=== PATIENT | male | born 1965 | race African-American/Black ===

== ENCOUNTER 2018-11-22 21:37 | Emergency (ER) | payer BC ==
[~2018-11-22] VITALS: Ht 182.9 cm; Wt 104.3 kg
[~2018-11-22 21:37] MED LIST: NAPROSYN500 M1 ORAL; NORCO 5-325 TA1 EACH ORAL
--- NOTE | 2018-11-22 21:37 | NUR ---
ED Nurse Note: Patient biba RA 28 from home c/o syncopal episode accompanied by general weakness, patient states that he just had recent Hemorrhoidectomy. reports of having dark red bleeding earlier today. Pt is AO x 4times, VSS, on room air no distress. ERMD seen Pt at bedside.
--- NOTE | 2018-11-22 21:45 | NUR ---
ED Nurse Note: Blood sample sent to lab.
--- NOTE | 2018-11-22 21:49 | Emergency Room Report ---
History of Present Illness General Chief Complaint: Syncope Source: Patient Present Illness HPI Patient presents with reports of a near syncope versus possible syncopal episode patient had Hemorrhoidectomy 8 days ago He has been having intermittent blood and rectal bleeding since then however 2 days ago he essentially stopped Today after using the restroom he noticed increased blood in the toilet after using the restroom another time Saw increased amount of blood At this point after returning to his room patient started feeling lightheaded And paramedics were summoned patient was found to be hypotensive at the scene Currently denies any chest pain or shortness of breath denies any abdominal pain reports feeling somewhat better Allergies: Uncoded Allergies: NUTS (Allergy, Unknown, 11/22/18) Patient History Past Medical History: see triage record Pertinent Family History: none Reviewed Nursing Documentation: PMH: Agreed; PSxH: Agreed Nursing Documentation-PMH Past Medical History: No History, Except For Review of Systems All Other Systems: negative except mentioned in HPI Physical Exam Vital Signs Date Time Temp Pulse Resp B/P (MAP) Pulse Ox O2 Delivery O2 Flow Rate FiO2 11/22/18 21:33 98.1 89 18 101/55 (70) 100 Room Air Sp02 EP Interpretation: reviewed, normal General Appearance: well appearing, no apparent distress Head: normocephalic, atraumatic Eyes: bilateral eye PERRL, bilateral eye EOMI ENT: hearing grossly normal, normal pharynx, TMs + canals normal, uvula midline Neck: full range of motion, supple, no meningismus, no bony tend Respiratory: lungs clear, normal breath sounds, no rhonchi, no respiratory distress, no retraction, no accessory muscle use Cardiovascular #1: normal peripheral pulses, regular rate, rhythm, no edema, no gallop, no JVD, no murmur Gastrointestinal: normal bowel sounds, non tender, soft, no mass, no organomegaly, non-distended, no guarding, no hernia, no pulsatile mass, no rebound, other - Approximately 7-10 o'clock region perirectal area there is some erosion and erythema Rectal: other - As above Genitourinary: no CVA tenderness Musculoskeletal: normal inspection Neurologic: oriented x3, responsive, ophthalmic medical assistant III-XII nml as tested, motor strength/ tone normal, sensory intact Psychiatric: mood/affect normal Skin: other - Mild pallor Lymphatic: normal inspection, no adenopathy Medical Decision Making Diagnostic Impression: Primary Impression: Syncope Additional Impression: GI bleed ER Course Patient is a fairly complex patient with multiple differential to consideration including but not limited to cardiac cardiopulmonary and vascular emergencies Given the patient's recent procedure and bleeding as well GI hemorrhage is considered patient's initial blood count shows hemoglobin 10.6 During this visit patient had a large amount of blood per rectum as well Repeat hemoglobin shows 10.4 findings patient however appears more pale and uncomfortable And emergency transfusion was performed At this time patient's blood pressure and heart rate remain appropriate and given the request for continued if care At the facility where procedure was performed patient will transfer for continued care Labs Test 11/22/18 21:40 11/22/18 23:50 11/23/18 01:39 White Blood Count 7.5 K/UL (4.8-10.8) 9.2 K/UL (4.8-10.8) Red Blood Count 4.45 M/UL (4.70-6.10) 4.38 M/UL (4.70-6.10) Hemoglobin 10.6 G/DL (14.2-18.0) 10.4 G/DL (14.2-18.0) Hematocrit 33.5 % (42.0-52.0) 33.4 % (42.0-52.0) Mean Corpuscular Volume 75 FL (80-99) 76 FL (80-99) Mean Corpuscular Hemoglobin 23.7 PG (27.0-31.0) 23.8 PG (27.0-31.0) Mean Corpuscular Hemoglobin Concent 31.5 G/DL (32.0-36.0) 31.2 G/DL (32.0-36.0) Red Cell Distribution Width 13.3 % (11.6-14.8) 14.2 % (11.6-14.8) Platelet Count 203 K/UL (150-450) 205 K/UL (150-450) Mean Platelet Volume 5.0 FL (6.5-10.1) 5.4 FL (6.5-10.1) Neutrophils (%) (Auto) 49.6 % (45.0-75.0) 73.0 % (45.0-75.0) Lymphocytes (%) (Auto) 38.0 % (20.0-45.0) 17.6 % (20.0-45.0) Monocytes (%) (Auto) 7.4 % (1.0-10.0) 7.1 % (1.0-10.0) Eosinophils (%) (Auto) 3.2 % (0.0-3.0) 1.2 % (0.0-3.0) Basophils (%) (Auto) 1.7 % (0.0-2.0) 1.1 % (0.0-2.0) Sodium Level 139 MMOL/L (136-145) Potassium Level 4.2 MMOL/L (3.5-5.1) Chloride Level 107 MMOL/L (98-107) Carbon Dioxide Level 28 MMOL/L (21-32) Anion Gap 4 mmol/L (5-15) Blood Urea Nitrogen 15 mg/dL (7-18) Creatinine 1.4 MG/DL (0.55-1.30) Estimat Glomerular Filtration Rate > 60 mL/min (>60) Glucose Level 169 MG/DL (74-106) Calcium Level 8.1 MG/DL (8.5-10.1) Total Bilirubin 0.1 MG/DL (0.2-1.0) Aspartate Amino Transf (AST/SGOT) 17 U/L (15-37) Alanine Aminotransferase (ALT/SGPT) 29 U/L (12-78) Alkaline Phosphatase 60 U/L (46-116) Total Creatine Kinase 229 U/L (26-308) Creatine Kinase MB 0.8 NG/ML (0.0-3.6) Creatine Kinase MB Relative Index 0.3 Troponin I 0.013 ng/mL (0.000-0.056) Pro-B-Type Natriuretic Peptide 12 pg/mL (0-125) Total Protein 6.0 G/DL (6.4-8.2) Albumin 2.8 G/DL (3.4-5.0) Globulin 3.2 g/dL Albumin/Globulin Ratio 0.9 (1.0-2.7) Lipase 110 U/L (73-393) Urine Color Pale yellow Urine Appearance Clear Urine pH 6 (4.5-8.0) Urine Specific [place] 1.015 (1.005-1.035) Urine Protein 1+ (NEGATIVE) Urine Glucose (UA) 2+ (NEGATIVE) Urine Ketones Negative (NEGATIVE) Urine Blood Negative (NEGATIVE) Urine Nitrite Negative (NEGATIVE) Urine Bilirubin Negative (NEGATIVE) Urine Urobilinogen Normal MG/DL (0.0-1.0) Urine Leukocyte Esterase Negative (NEGATIVE) Urine RBC 0-2 /HPF (0 - 0) Urine WBC 0-2 /HPF (0 - 0) Urine Squamous Epithelial Cells Occasional /LPF Urine Bacteria Occasional /HPF (NONE) Urine Hyaline Casts 0-2 /LPF (NONE) Urine Fine Granular Casts 0-2 /LPF (NONE) Rhythm Strip Diag. Results EP Interpretation: yes Rate: 87 Rhythm: NSR, no PVC's, no ectopy Chest X-Ray Diagnostic Results Chest X-Ray Diagnostic Results : Chest X-Ray Ordered: Yes # of Views/Limited/Complete: 1 View Indication: Chest Pain EP Interpretation: Yes Interpretation: no consolidation, no effusion, no pneumothorax Impression: No acute disease Electronically Signed by: Christie Rosa DO Last Vital Signs Date Time Temp Pulse Resp B/P (MAP) Pulse Ox O2 Delivery O2 Flow Rate FiO2 11/22/18 21:33 98.1 89 18 101/55 (70) 100 Room Air Status: improved Disposition: XFER SHT-TRM HOSP Condition: Serious Christie Rosa DO Nov 22, 2018 21:49
[2018-11-22 21:52] VITALS: BP 111/64
[2018-11-22 21:54] LABS: BASOPHILS % (AUTO) 1.7 % (0.0-2.0); EOSINOPHILS % (AUTO) 3.2 % (0.0-3.0); HEMATOCRIT 33.5 % (42.0-52.0); HEMOGLOBIN 10.6 G/DL (14.2-18.0); MEAN CORPUSCULAR VOLUME 75 FL (80-99); MONOCYTES % (AUTO) 7.4 % (1.0-10.0); NEUTROPHILS % (AUTO) 49.6 % (45.0-75.0); PLATELET COUNT 203 K/UL (150-450); RED BLOOD COUNT 4.45 M/UL (4.70-6.10); RED CELL DISTRIBUTION WIDTH 13.3 % (11.6-14.8); WHITE BLOOD COUNT 7.5 K/UL (4.8-10.8)
--- NOTE | 2018-11-22 22:01 | NUR ---
ED Nurse Note: X ray at bedside.
[2018-11-22 22:03] LABS: ANION GAP 4 mmol/L (5-15); BLOOD UREA NITROGEN 15 mg/dL (7-18); CALCIUM 8.1 MG/DL (8.5-10.1); CARBON DIOXIDE 28 MMOL/L (21-32); CHLORIDE 107 MMOL/L (98-107); CREATININE 1.4 MG/DL (0.55-1.30); POTASSIUM 4.2 MMOL/L (3.5-5.1); SODIUM 139 MMOL/L (136-145)
[2018-11-22 22:17] LABS: ALANINE AMINOTRANSFERASE 29 U/L (12-78); ALBUMIN 2.8 G/DL (3.4-5.0); ALBUMIN/GLOBULIN RATIO 0.9 (1.0-2.7); ALKALINE PHOSPHATASE 60 U/L (46-116); ASPARTATE AMINO TRANSFERASE 17 U/L (15-37); BILIRUBIN,TOTAL 0.1 MG/DL (0.2-1.0); CKMB 0.8 NG/ML (0.0-3.6); CREATINE KINASE 229 U/L (26-308)
--- NOTE | 2018-11-22 22:31 | Diagnostic Imaging Report ---
EXAM: XR Chest, 1 View CLINICAL HISTORY: CP TECHNIQUE: Frontal view of the chest. COMPARISON: No relevant prior studies available. FINDINGS: Lungs: Unremarkable. No consolidation. Pleural space: Unremarkable. No pneumothorax. Heart: Unremarkable. No cardiomegaly. Mediastinum: Unremarkable. Bones/joints: Unremarkable. IMPRESSION: Normal chest x-ray.
--- NOTE | 2018-11-22 22:39 | NUR ---
ED Nurse Note: Pt will admit to Tele, and will stay over night. Mckayla Kumari [phone]
[2018-11-22] MEDS ORDERED: IBUPROFEN600 MG ORAL (22:45)
[2018-11-22] MEDS ORDERED: NORCO 5-325 TA1 EACH ORAL (22:45)
--- NOTE | 2018-11-23 | NUR ---
ED Nurse Note: Urine sample sent to lab.
[2018-11-23 00:01] VITALS: BP 107/61
[2018-11-23 00:03] LABS: APPEARANCE,URINE CLEAR; BILIRUBIN, URINE NEGATIVE (NEGATIVE); COLOR,URINE PALE YELLOW; GLUCOSE, URINE (UA) 2+ (NEGATIVE); KETONES,URINE NEGATIVE (NEGATIVE); LEUKOCYTE ESTERASE ,URINE NEGATIVE (NEGATIVE); NITRITE,URINE NEGATIVE (NEGATIVE); PH,URINE 6 (4.5-8.0); PROTEIN,URINE 1+ (NEGATIVE); UROBILINOGEN,URINE NORMAL MG/DL (0.0-1.0)
[2018-11-23 01:44] LABS: BASOPHILS % (AUTO) 1.1 % (0.0-2.0); EOSINOPHILS % (AUTO) 1.2 % (0.0-3.0); HEMATOCRIT 33.4 % (42.0-52.0); HEMOGLOBIN 10.4 G/DL (14.2-18.0); LYMPHOCYTES % (AUTO) 17.6 % (20.0-45.0); MEAN CORPUSCULAR VOLUME 76 FL (80-99); MONOCYTES % (AUTO) 7.1 % (1.0-10.0); PLATELET COUNT 205 K/UL (150-450); RED BLOOD COUNT 4.38 M/UL (4.70-6.10); RED CELL DISTRIBUTION WIDTH 14.2 % (11.6-14.8); WHITE BLOOD COUNT 9.2 K/UL (4.8-10.8)
--- NOTE | 2018-11-23 01:45 | NUR ---
ED Nurse Note: CBC and Blood ABO type sent to Lab.
[2018-11-23 02:30] VITALS: BP 101/61
--- NOTE | 2018-11-23 02:30 | NUR ---
ED Nurse Note: Blood transfusion start, Pt VSS.
[2018-11-23 02:45] VITALS: BP 100/66
--- NOTE | 2018-11-23 02:50 | NUR ---
ED Nurse Note: Report given to Latoya Swanson. Pt will will admit room 405. Addendum: 11/23/18 at 0308 by FAITH ED Nurse Note: Report given to Latoya Swanson. Pt will will admit room 415.
[2018-11-23 04:00] VITALS: BP 100/62
--- NOTE | 2018-11-23 04:00 | NUR ---
ED Nurse Note: Blood transfuion finished, Pt VSS no reaction.
[2018-11-23 04:28] VITALS: BP 100/62
--- NOTE | 2018-11-23 04:30 | NUR ---
ED Nurse Note: EMT hop picker Pt to [facility]. Report given to EMT Leander.
== END 2018-11-23 04:47 | disposition short-term general hospital (02) ==
LOC: EDBD 21:37 → EMR 22:40 → EDBEDREQ 11-23 01:11 → EDBEDREQSVC 11-23 01:22 → EMR 11-23 04:47
DX: R55 Syncope and collapse (principal); K92.2 Gastrointestinal hemorrhage, unspecified; R07.9 Chest pain, unspecified; Z91.018 Allergy to other foods
CPT/HCPCS: 36415; 71045; 80053; 81003; 82550; 82553; 83690; 83880; 84484; 85025; 86850; 86900; 86901; 86920; 93005; 96360; 96361; 99285; P9016